=== PATIENT | female | born 1990 | race Caucasian/White ===

== ENCOUNTER 2019-11-28 17:48 | Emergency (ER) | payer SELFPAY ==
--- NOTE | 2019-11-28 18:37 | EDM.PDOC ---
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 She states she is noticed this discharge last couple of days only when she wipes after urination there is no discharge in her underwear no vaginal bleeding no big gush of fluid she denies any cramping she has not had a quickening. 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: Reports: Polycystic Ovaries, Other PHOTOGRAPHIC EDITOR History: Musculoskeletal History: Reports: Fracture Other Musculoskeletal History: left ankle right wrist Other Hematologic History: Rh Negative - Infectious Disease History Infectious Disease History: Reports: Chicken Pox - Past Surgical History HEENT Surgical History: Reports: Adenoidectomy, Tonsillectomy Social & Family History - Tobacco Use Smoking Status *Q: Never Smoker - Caffeine Use Caffeine Use: Reports: Soda - Recreational Drug Use Recreational Drug Use: No ED ROS GENERAL - Review of Systems Review Of Systems: See Below Constitutional: Reports: No Symptoms HEENT: Reports: No Symptoms Respiratory: Reports: No Symptoms Cardiovascular: Reports: No Symptoms GI/Abdominal: Reports: No Symptoms : Reports: Other (Brown discharge with a warm sensation in the pelvic area) Musculoskeletal: Reports: No Symptoms ED EXAM - Physical Exam Exam: See Below Exam Limited By: No Limitations General Appearance: Alert, WD/WN, No Apparent Distress Respiratory/Chest: No Respiratory Distress GI/Abdominal Exam: Normal Bowel Sounds, Soft, Non-Tender Heart Tones: Present Heart Tones per Min: 160 (Ultrasound performed by myself revealed good heart tones good movement at the bedside) Movement: Active Course - Vital Signs Last Recorded V/S: Last Vital Signs Temp 99.3 F 11/28/19 18:04 Pulse 101 H 11/28/19 18:04 Resp 16 11/28/19 18:04 BP 136/68 11/28/19 18:04 Pulse Ox 97 11/28/19 18:04 - Orders/Labs/Meds Orders: Active Orders 24 hr Category Date Time Status CULTURE URINE [RM] Urgent Lab 11/28/19 19:02 Ordered Labs: Laboratory Tests 11/28/19 Range/Units 18:46 Urine Color Yellow (YELLOW) Urine Appearance Clear (CLEAR) Urine pH 7.0 (5.0-8.0) Ur Specific [place] 1.025 (1.008-1.030) Urine Protein Negative (NEGATIVE) mg/dL Urine Glucose (UA) Negative (NEGATIVE) mg/dL Urine Ketones Negative (NEGATIVE) mg/dL Urine Occult Blood Small H (NEGATIVE) Urine Nitrite Negative (NEGATIVE) Urine Bilirubin Negative (NEGATIVE) Urine Urobilinogen 0.2 (0.2-1.0) EU/dL Ur Leukocyte Esterase Negative (NEGATIVE) Urine RBC 0-5 (0-5) Urine WBC Not seen (0-5) Ur Epithelial Cells Moderate Amorphous Sediment Few Urine Bacteria Many Urine Mucus Few Departure - Departure Time of Disposition: 19:11 Disposition: Home, Self-Care 01 Condition: Fair Clinical Impression: Asymptomatic bacteriuria during - Discharge Information Referrals: PCP,None [Primary Care Provider] - Forms: ED Department Discharge Additional Instructions: Take full course of antibiotics, please followup with your primary care provider in 3-5 days if not better, please call return to the emergency department with worsening of symptoms. Sepsis Event Note - Evaluation Sepsis Screening Result: No Definite Risk - Focused Exam Vital Signs: Vital Signs Temp Pulse Resp BP Pulse Ox 11/28/19 18:04 99.3 F 101 H 16 136/68 97 Date Exam was Performed: 11/28/19 Time Exam was Performed: 19:02 - My Orders Last 24 Hours: My Active Orders 11/28/19 19:02 CULTURE URINE [RM] Urgent - Assessment/Plan Last 24 Hours: My Active Orders 11/28/19 19:02 CULTURE URINE [RM] Urgent Plan: Assessment Acuity = acute Site and laterality = hematuria complicated the patient who is 17 weeks intrauterine consistent with asymptomatic bacteriuria Etiology = suspicious for underlying urinary tract infection Manifestations = none Location of injury = Home Lab values = urinalysis reveals occult blood with many bacteria however no WBCs cultures pending Plan Elected to treat with nitro phenytoin 100 mg p.o. twice daily x7 days follow-up with primary care next 3 to 5 days for reevaluation This note was dictated using [employer] voice recognition software please call with any questions on syntax or grammar.
== END 2019-11-28 19:22 | disposition home or self-care (01) ==
LOC: JP.ED 17:48
DX: O99.89 Other specified diseases and conditions complicating pregnancy, childbirth and the puerperium (principal); R82.71 Bacteriuria; Z79.82 Long term (current) use of aspirin; Z79.899 Other long term (current) drug therapy; Z3A.17 17 weeks gestation of pregnancy
CPT/HCPCS: 81001; 87086; 99283

== ENCOUNTER 2020-07-01 15:36 | Emergency (ER) | payer BC ==
[2020-07-01] MEDS ORDERED: Bacitracin Oint 1 GM U/D Packet TOP ONE (16:33)
--- NOTE | 2020-07-01 16:35 | EDM.PDOC ---
ED HPI GENERAL MEDICAL PROBLEM - General Chief Complaint: Laceration Stated Complaint: RIGHT THUMB CUT WHILE WASHING DISHES Time Seen by Provider: 07/01/20 16:25 Source of Information: Reports: Patient, RN History Limitations: Reports: No Limitations - History of Present Illness INITIAL COMMENTS - FREE TEXT/NARRATIVE: wound to right thumb - cut her thumb on recently sharpened knife while doing dishes Onset: Today Onset Date: 07/01/20 Onset Time: 15:00 Duration: Hour(s):, Constant Location: Reports: Upper Extremity, Right Quality: Reports: Throbbing Severity: Moderate Improves with: Reports: Rest Worsens with: Reports: Movement Context: Reports: Trauma Associated Symptoms: Reports: No Other Symptoms 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) (none) - Related Data Allergies Allergy/AdvReac Type Severity Reaction Status Date / Time No Known Allergies Allergy Verified 07/01/20 15:58 Home Meds: Home Meds Aspirin [Ecotrin EC] 81 mg PO DAILY 11/28/19 [History] Cholecalciferol (Vitamin D3) [Vitamin D3] 1,000 unit PO DAILY 11/28/19 [History] Docosahexaenoic Acid/Epa [Fish Oil Concentrate Softgel] 1 each PO DAILY 11/28/19 [History] Mv-Mn/Iron/FA/Herbal/Digestive [ One Tablet] 1 each PO DAILY 11/28/19 [History] Citalopram [Citalopram HBr] 1 tab PO BID 07/01/20 [History] Past Medical History Respiratory History: Reports: Asthma 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 Skin: Reports: Lesions (cut to palmar surface of right thumb) ED EXAM, SKIN/RASH Exam: See Below Text/Narrative:: 2 cm open lesion to right thumb. last Tetanus in january 2020 pt has no allergies. VSS. no bleeding at this time. Exam Limited By: No Limitations General Appearance: Alert, WD/WN, No Apparent Distress Respiratory/Chest: No Respiratory Distress, Lungs Clear Cardiovascular: Normal Peripheral Pulses, Regular Rate, Rhythm Extremities: Normal Range of Motion Neurological: Alert, Oriented, CN II-XII Intact, Normal Cognition, Normal Gait, Normal Reflexes Psychiatric: Normal Affect, Normal Mood Skin: Warm, Normal Color, Erythema, Other (lesion right thumb, cms intact distal to laceration, pt has full ROM of right thumb) Location, Skin: Upper Extremity, Right (thumb) Characteristics: Linear (laceration) Associated features: Tenderness ED SKIN PROCEDURES - Laceration/Wound Repair Right Digit - 1st (Thumb) Appearance: Subcutaneous, Linear, Clean Distal NVT: Neuro & Vascular Intact, No Tendon Injury Anesthetic Type: Local Local Anesthesia - Lidocaine (Xylocaine): 1% Plain Local Anesthetic Volume: 3cc Skin Prep: Chlorhexidine (Hibiciens) Saline Irrigation (cc's): 30 Exploration/Debridement/Repair: Wound Explored, In a Bloodless Field, Explored to Base, No Foreign Material Found Closed with: Sutures Lac/Wound length In cm: 2 Suture Size: 4-0 # of Sutures: 3 Suture Type: Prolene Tetanus Status Addressed: Yes (Pt received in January 2020) Complications: No Progress/Comments: Pt verbally consented to repair of laceration. Pt denies allergies and Tetanus is current. Wound cleaned and inspected in a bloodless field. no foreign material found. 3 - 4-0 Prolene sutures placed. Pt tolerated sutures without difficultly. Pt CMS intact post suture placement. Pt continues good range of motion. Cleaned and bacitracin applied per RN. Bandaid to protect site. Instructed pt to keep covered for 24 hours and suture removal in 7-10 days. Pt understands directions and discharges in stable condition. Course - Vital Signs Last Recorded V/S: Last Vital Signs Temp 36.6 C 07/01/20 16:04 Pulse 78 07/01/20 16:04 Resp 16 07/01/20 16:04 BP 130/75 07/01/20 16:04 Pulse Ox 98 07/01/20 16:04 - Orders/Labs/Meds Meds: Medications Discontinued Medications Generic Name Dose Route Start Last Admin Trade Name Freq PRN Reason Stop Dose Admin Bacitracin 1 dose 07/01/20 16:33 07/01/20 16:44 Bacitracin Oint 1 Gm TOP 07/01/20 16:34 1 dose ONETIME ONE Administration Lidocaine HCl 5 ml 07/01/20 16:33 07/01/20 16:44 Xylocaine-Mpf 1% INJECT 07/01/20 16:34 5 ml ONETIME ONE Administration - Re-Assessments/Exams Free Text/Narrative Re-Assessment/Exam: 07/01/20 17:21 Pt tolerated suture placement. Educated wound care and understands sxs to report Departure - Departure Time of Disposition: 17:30 Disposition: Home, Self-Care 01 Clinical Impression: Laceration - Discharge Information *PRESCRIPTION DRUG MONITORING PROGRAM REVIEWED*: Not Applicable *COPY OF PRESCRIPTION DRUG MONITORING REPORT IN PATIENT THALIA: Not Applicable Instructions: Laceration Care, Adult, [id number] Referrals: PCP,None [Primary Care Provider] - Forms: ED Department Discharge Additional Instructions: Keep area clean and dry - covered for first 24 hours or so. Suture removal in 7-10 days. Care Plan Goals: Keep laceration clean and dry and free of infection. Sepsis Event Note (ED) - Evaluation Sepsis Screening Result: No Definite Risk - Focused Exam Vital Signs: Vital Signs Temp Pulse Resp BP Pulse Ox 07/01/20 16:04 36.6 C 78 16 130/75 98 07/01/20 15:54 36.6 C 78 16 130/75 98
== END 2020-07-01 17:30 | disposition home or self-care (01) ==
LOC: JP.ED 15:36
DX: S61.011A Laceration without foreign body of right thumb without damage to nail, initial encounter (principal); J45.909 Unspecified asthma, uncomplicated; Z79.82 Long term (current) use of aspirin; Z79.899 Other long term (current) drug therapy; W26.0XXA Contact with knife, initial encounter; Y93.G1 Activity, food preparation and clean up
CPT/HCPCS: 12001; 99282; J2001

== ENCOUNTER 2023-09-06 21:02 | Emergency (ER) | payer OTHER, BC | END 2023-09-06 23:20 | disposition home or self-care (01) | LOC: JP.ED 21:02 | DX: S56.902A Unspecified injury of unspecified muscles, fascia and tendons at forearm level, left arm, initial encounter (principal); V48.5XXA Car driver injured in noncollision transport accident in traffic accident, initial encounter; Y92.410 Unspecified street and highway as the place of occurrence of the external cause | CPT/HCPCS: 73090-LT; 99282; 99283 ==

== ENCOUNTER 2025-08-23 00:14 | Emergency (ER) | payer BC ==
[2025-08-23 01:43] LABS: BASOPHILS ABSOLUTE AUTO 0.12 K/uL (0.00-0.10); BASOPHILS PERCENT AUTO 1.4 % (0.1-1.3); EOSINOPHILS ABSOLUTE AUTO 0.27 K/uL (0.00-0.40); EOSINOPHILS PERCENT AUTO 3.2 % (0.0-5.4); IMMATURE GRAN ABSOLUTE AUTO 0.04 K/uL (0.00-0.23); IMMATURE GRAN PERCENT AUTO 0.5 % (0.0-0.7); LYMPHOCYTES ABSOLUTE AUTO 2.78 K/uL (0.8-3.3); LYMPHOCYTES PERCENT AUTO 33.3 % (11.4-47.7); MONOCYTES ABSOLUTE AUTO 0.59 K/uL (0.20-0.90); MONOCYTES PERCENT AUTO 7.1 % (3.3-12.6); NEUTROPHILS ABSOLUTE AUTO 4.54 K/uL (1.0-7.6); NEUTROPHILS PERCENT AUTO 54.5 % (40.0-78.1); PLATELET COUNT,PLT 314 K/uL (130-375); RED BLOOD CELL COUNT 4.23 M/uL (3.77-5.24); WHITE BLOOD CELL COUNT,WBC 8.3 K/uL (3.2-11.0)
[2025-08-23 01:52] LABS: APPEARANCE,URINE SLIGHTLY CLOUDY (CLEAR); GLUCOSE,URINE NEGATIVE (NEGATIVE); OCCULT BLOOD,URINE NEGATIVE (NEGATIVE)
[2025-08-23 01:58] LABS: BLOOD UREA NITROGEN,BUN 12.0 mg/dL (7-18); CARBON DIOXIDE,CO2 25.0 mmol/L (21-32); CHLORIDE,CL 103.0 mmol/L (100-108); CREATININE 0.7 mg/dL (0.6-1.0); EST CRCL DRUG DOSING (CG) 91.02 mL/min; ESTIMATED GFR 114.0 mL/min (>60); GLUCOSE RANDOM 91.0 mg/dL (74-106); POTASSIUM,K 3.4 mmol/L (3.6-5.2); SODIUM,NA 139.0 mmol/L (140-148)
== END 2025-08-23 02:35 | disposition home or self-care (01) ==
LOC: JP.ED 00:14
DX: M62.830 Muscle spasm of back (principal); J45.909 Unspecified asthma, uncomplicated; Z86.16 Personal history of COVID-19
CPT/HCPCS: 36415; 80048; 81003; 85025; 99283; A9270